=== PATIENT | female | born 1995 | race Caucasian/White ===

== ENCOUNTER 2016-11-27 16:41 | Emergency (ER) | payer OTHER ==
[2016-11-27] MEDS ORDERED: Sodium Chloride 0.9% 10 ML Syringe FLUSH PRN (17:07)
[2016-11-27] MEDS ORDERED: Sodium Chloride 0.9% 2.5 ML Syringe FLUSH PRN (17:07)
--- NOTE | 2016-11-27 17:10 | EDM.PDOC ---
<Blanca Griffin - Last Filed: 11/27/16 18:37> ED HPI GENERAL MEDICAL PROBLEM - General Chief Complaint: Abdominal Pain Stated Complaint: PT HAS STOMACH PAINS Time Seen by Provider: 11/27/16 16:56 - History of Present Illness INITIAL COMMENTS - FREE TEXT/NARRATIVE: HISTORY AND PHYSICAL: History of present illness: The patient is a 21-year-old female with no medical or surgical history and presents with complaints of right upper quadrant pain that has been ongoing since March of this year, 8-1/2 months. She has been seen in our clinic in the past and has had an ultrasound and a HIDA scan which were both normal. The patient then subsequently had an EGD done at an outside institution in May where she was diagnosed with a stomach polyp which was benign and the remainder of the exam was normal and she was not started on medications. Since May the patient has not followed up with any provider and says that she has pain every day but it does not wake her from sleep. She says is always present and seems very sharp like in character and it gets worse after fatty foods and it causes nausea. She's not had any vomiting or diarrhea and has no black or bloody stools. She has no flank pain and no urinary complaints. She has no upper respiratory symptoms chest pain or shortness of breath. The patient is not taking anything for the pain and does not ask anything for the pain. 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 She says the pain seemed to have gotten worse over the last 24 hours and she feels nauseated but no vomiting. Review of systems: As per history of present illness and below otherwise all systems reviewed and negative. Past medical history: As per history of present illness and as reviewed below otherwise noncontributory. Surgical history: As per history of present illness and as reviewed below otherwise noncontributory. Social history: No reported history of drug or alcohol abuse. Family history: As per history of present illness and as reviewed below otherwise noncontributory. Physical exam: Gen.: Well-developed well-nourished female who is nontoxic and speaking clearly and easily in the ED. She moves very easily without distress HEENT: Atraumatic, normocephalic, negative for conjunctival pallor or scleral icterus, mucous membranes moist, throat clear, neck supple, nontender, trachea midline. Lungs: Clear to auscultation, breath sounds equal bilaterally, chest nontender. Heart: S1S2, regular in rhythm no overt murmurs Abdomen: Soft, nondistended, minimally tender in the right upper quadrant on deep palpation without rebound or guarding and overall very unimpressive exam. Bowel sounds are normoactive. Negative for masses or hepatosplenomegaly. Negative for costovertebral tenderness. Pelvis: Stable nontender. Genitourinary: Deferred. Rectal: Deferred. Extremities: Atraumatic, negative for cords or calf pain. Neurovascular unremarkable. Neuro: Awake, alert, oriented. Cranial nerves II through XII unremarkable. Cerebellum unremarkable. Motor and sensory unremarkable throughout. Exam nonfocal. Diagnostics: CBC CMP amylase lipase UA UCG CT scan of the abdomen and pelvis Therapeutics: Patient refuses Zofran for nausea and any pain medications at this time We have advised the patient of all the testing results and care plan Impression: Abdominal pain chronic Definitive disposition and diagnosis as appropriate pending reevaluation and review of above. Right Upper Abdomen Pain Score (Numeric/FACES): 7 - Related Data Allergies Allergy/AdvReac Type Severity Reaction Status Date / Time amoxicillin Allergy unknown Verified 03/25/16 22:22 Home Meds: Home Meds . 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 Neurological History: Reports: None Psychiatric History: Reports: Anxiety, Depression Endocrine/Metabolic History: Reports: None Hematologic History: Reports: None Immunologic History: Reports: None Oncologic (Cancer) History: Reports: None Dermatologic History: Reports: None - Infectious Disease History Infectious Disease History: Reports: None - Past Surgical History Head Surgeries/Procedures: Reports: None HEENT Surgical History: Reports: None GI Surgical History: Reports: EGD, Polypectomy Musculoskeletal Surgical History: Reports: Other (See Below) Other Musculoskeletal Surgeries/Procedures:: low back surgery Social & Family History - Family History Family Medical History: Noncontributory - Tobacco Use Smoking Status *Q: Never Smoker ED ROS GENERAL - Review of Systems Review Of Systems: ROS reveals no pertinent complaints other than HPI. ED EXAM, GENERAL - Physical Exam Exam: See Below (See dictation) Course - Vital Signs Last Recorded V/S: Last Vital Signs Temp 36.4 C 11/27/16 16:52 Pulse 93 11/27/16 16:52 Resp 18 11/27/16 16:52 BP 138/91 H 11/27/16 16:52 Pulse Ox 99 11/27/16 16:52 - Orders/Labs/Meds Orders: Active Orders 24 hr Category Date Time Status Abdomen Pelvis w Cont [CT] Stat Exams 11/27/16 17:07 Taken Sodium Chloride 0.9% [Saline Flush] Med 11/27/16 17:07 Active 10 ml FLUSH ASDIRECTED PRN Sodium Chloride 0.9% [Saline Flush] Med 11/27/16 17:07 Active 2.5 ml FLUSH ASDIRECTED PRN Saline Lock Insert [OM.PC] Stat Oth 11/27/16 17:05 Ordered Medication Orders Sodium Chloride (Saline Flush) 10 ml FLUSH ASDIRECTED PRN PRN Reason: Keep Vein Open Sodium Chloride (Saline Flush) 2.5 ml FLUSH ASDIRECTED PRN PRN Reason: Keep Vein Open Labs: Laboratory Tests 11/27/16 11/27/16 11/27/16 Range/Units 17:15 17:15 17:20 WBC 8.77 (4.0-11.0) K/uL RBC 4.32 (4.30-5.90) M/uL Hgb 13.6 (12.0-16.0) g/dL Hct 40.1 (36.0-46.0) % MCV 92.8 (80.0-98.0) fL MCH 31.5 (27.0-32.0) pg MCHC 33.9 (31.0-37.0) g/dL RDW Std Deviation 45.2 (28.0-62.0) fl RDW Coeff of Blanca 13 (11.0-15.0) % Plt Count 260 (150-400) K/uL MPV 9.10 (7.40-12.00) fL Neut % (Auto) 60.0 (48.0-80.0) % Lymph % (Auto) 29.6 (16.0-40.0) % [place] % (Auto) 9.4 (0.0-15.0) % Eos % (Auto) 0.8 (0.0-7.0) % Baso % (Auto) 0.2 (0.0-1.5) % Neut # (Auto) 5.3 (1.4-5.7) K/uL Lymph # (Auto) 2.6 H (0.6-2.4) K/uL [place] # (Auto) 0.8 (0.0-0.8) K/uL Eos # (Auto) 0.1 (0.0-0.7) K/uL Baso # (Auto) 0.0 (0.0-0.1) K/uL Nucleated RBC % 0.0 /100WBC Nucleated RBCs # 0 K/uL Sodium 141 (136-146) mmol/L Potassium 3.4 L (3.5-5.1) mmol/L Chloride 107 (98-110) mmol/L Carbon Dioxide 25 (21-31) mmol/L BUN 10 (6.0-23.0) mg/dL Creatinine 0.8 (0.6-1.5) mg/dL Est Cr Clr Drug Dosing 108.17 mL/min Estimated GFR (MDRD) > 60.0 ml/min Glucose 93 (60-110) mg/dL Calcium 8.5 L (8.8-10.8) mg/dL Total Bilirubin 0.3 (0.1-1.5) mg/dL AST 19 (5-40) IU/L ALT 17 (8-54) IU/L Alkaline Phosphatase 63 (40-150) Total Protein 7.4 (6.0-8.0) g/dL Albumin 4.0 (3.5-5.0) g/dL Globulin 3.4 (2.0-3.5) g/dL Albumin/Globulin Ratio 1.2 L (1.3-2.8) Amylase 50 (10-90) U/L Lipase 19 (7-80) U/L Urine Color Urine Appearance Urine pH (5.0-8.0) Ur Specific [place] (1.001-1.035) Urine Protein (NEGATIVE) mg/dL Urine Glucose (UA) (NEGATIVE) mg/dL Urine Ketones (NEGATIVE) mg/dL Urine Occult Blood (NEGATIVE) Urine Nitrite (NEGATIVE) Urine Bilirubin (NEGATIVE) Urine Urobilinogen (<2.0) EU/dL Ur Leukocyte Esterase (NEGATIVE) Urine RBC (0-2/HPF) Urine WBC (0-5/HPF) Ur Epithelial Cells (NONE-FEW) Urine Bacteria (NEGATIVE) Urine HCG, Qual NEGATIVE (NEGATIVE) 11/27/16 Range/Units 17:20 WBC (4.0-11.0) K/uL RBC (4.30-5.90) M/uL Hgb (12.0-16.0) g/dL Hct (36.0-46.0) % MCV (80.0-98.0) fL MCH (27.0-32.0) pg MCHC (31.0-37.0) g/dL RDW Std Deviation (28.0-62.0) fl RDW Coeff of Blanca (11.0-15.0) % Plt Count (150-400) K/uL MPV (7.40-12.00) fL Neut % (Auto) (48.0-80.0) % Lymph % (Auto) (16.0-40.0) % [place] % (Auto) (0.0-15.0) % Eos % (Auto) (0.0-7.0) % Baso % (Auto) (0.0-1.5) % Neut # (Auto) (1.4-5.7) K/uL Lymph # (Auto) (0.6-2.4) K/uL [place] # (Auto) (0.0-0.8) K/uL Eos # (Auto) (0.0-0.7) K/uL Baso # (Auto) (0.0-0.1) K/uL Nucleated RBC % /100WBC Nucleated RBCs # K/uL Sodium (136-146) mmol/L Potassium (3.5-5.1) mmol/L Chloride (98-110) mmol/L Carbon Dioxide (21-31) mmol/L BUN (6.0-23.0) mg/dL Creatinine (0.6-1.5) mg/dL Est Cr Clr Drug Dosing mL/min Estimated GFR (MDRD) ml/min Glucose (60-110) mg/dL Calcium (8.8-10.8) mg/dL Total Bilirubin (0.1-1.5) mg/dL AST (5-40) IU/L ALT (8-54) IU/L Alkaline Phosphatase (40-150) Total Protein (6.0-8.0) g/dL Albumin (3.5-5.0) g/dL Globulin (2.0-3.5) g/dL Albumin/Globulin Ratio (1.3-2.8) Amylase (10-90) U/L Lipase (7-80) U/L Urine Color YELLOW Urine Appearance CLEAR Urine pH 6.0 (5.0-8.0) Ur Specific [place] <= 1.005 (1.001-1.035) Urine Protein NEGATIVE (NEGATIVE) mg/dL Urine Glucose (UA) NEGATIVE (NEGATIVE) mg/dL Urine Ketones NEGATIVE (NEGATIVE) mg/dL Urine Occult Blood NEGATIVE (NEGATIVE) Urine Nitrite NEGATIVE (NEGATIVE) Urine Bilirubin NEGATIVE (NEGATIVE) Urine Urobilinogen 0.2 (<2.0) EU/dL Ur Leukocyte Esterase NEGATIVE (NEGATIVE) Urine RBC 0-1 (0-2/HPF) Urine WBC NONE SEEN (0-5/HPF) Ur Epithelial Cells FEW (NONE-FEW) Urine Bacteria RARE (NEGATIVE) Urine HCG, Qual (NEGATIVE) Meds: Medications Generic Name Dose Route Start Last Admin Trade Name Freq PRN Reason Stop Dose Admin Sodium Chloride 10 ml 11/27/16 17:07 Saline Flush FLUSH ASDIRECTED PRN Keep Vein Open Sodium Chloride 2.5 ml 11/27/16 17:07 Saline Flush FLUSH ASDIRECTED PRN Keep Vein Open Discontinued Medications Generic Name Dose Route Start Last Admin Trade Name Freq PRN Reason Stop Dose Admin Iopamidol 100 ml 11/27/16 18:14 11/27/16 18:21 Isovue Multipack-370 (76%) IVPUSH 11/27/16 18:15 100 ml ONETIME STA Administration Departure - Departure Disposition: Home, Self-Care 01 Condition: Good Clinical Impression: Abdominal pain Qualifiers: Abdominal location: right upper quadrant Qualified Code(s): R10.11 - Right upper quadrant pain - Discharge Information Referrals: PCP,None [Primary Care Provider] - Forms: ED Department Discharge Additional Instructions: The following information is given to patients seen in the emergency department who are being discharged to home. This information is to outline your options for follow-up care. We provide all patients seen in our emergency department with a follow-up referral. The need for follow-up, as well as the timing and circumstances, are variable depending upon the specifics of your emergency department visit. If you don't have a primary care physician on staff, we will provide you with a referral. We always advise you to contact your personal physician following an emergency department visit to inform them of the circumstance of the visit and for follow-up with them and/or the need for any referrals to a consulting specialist. The emergency department will also refer you to a specialist when appropriate. This referral assures that you have the opportunity for followup care with a specialist. All of these measure are taken in an effort to provide you with optimal care, which includes your followup. Under all circumstances we always encourage you to contact your private physician who remains a resource for coordinating your care. When calling for followup care, please make the office aware that this follow-up is from your recent emergency room visit. If for any reason you are refused follow-up, please contact the [facility] emergency department at and ask to speak to the emergency department charge nurse. [facility]- [place] [address] Please call and connect with your clinic provider for further care and evaluation as we discussed. Please avoid fatty foods and push hydration avoid caffeinated products. Return to ER as needed and as discussed. <Issa Camacho - Last Filed: 11/27/16 19:44> Course - Vital Signs Text/Narrative:: Patient's CAT scan was reviewed there was a comment of suspicions for mild nonspecific colitis along the ascending colon near the hepatic flexure suggestion was to clinically correlate patient has had this pain since March but no diarrhea no fever no chills and no other complaints there is no clinical statement of colitis I will share with patient she needs to follow-up with her private doctor in whether colonoscopy is indicated at some point or further diagnostics will be determined by her private doctor in herself. Departure - Departure Time of Disposition: 19:43
[2016-11-27 17:43] LABS: CHLORIDE,CL 107 mmol/L (98-110); SODIUM,NA 141 mmol/L (136-146)
[2016-11-27] MEDS ORDERED: Iopamidol 755 MG/ML 500 ML Multipack Bottle IVPUSH STA (18:14)
[2016-11-27 21:13] VITALS: BP 97/63
--- NOTE | 2016-11-28 10:03 | CT ---
EXAM DATE: 11/27/16 PATIENT'S AGE: 21 Patient: MARIO AMOS Facility: [place], [place] Site . Site : 1995 Study: CT Abdomen/Pelvis [id number]/12/2017 6:36:37 PM Ordering Physician: Gaby Rios Final Report: INDICATION: RUQ pain TECHNIQUE: CT abdomen and pelvis acquired with IV contrast. COMPARISON: 03/26/2016 FINDINGS: Lower chest: Unremarkable. Liver: Unremarkable. Spleen: Unremarkable. Pancreas: Unremarkable. Gallbladder and bile ducts: Contracted. Kidneys: Unremarkable. Adrenal glands: Unremarkable. GI tract: Apparent circumferential wall thickening with mild pericolonic stranding along the ascending colon near the hepatic flexure. Appendix is normal. Vascular structures: Negative. No sign of aneurysm. Lymph nodes: Unremarkable. Miscellaneous: Unremarkable. No free air or significant free fluid. Pelvic Organs: Unremarkable. Bones: Postsurgical changes at the L5-S1 level. . IMPRESSION: Findings suspicious for mild nonspecific colitis along the ascending colon near the hepatic flexure. Please correlate with clinical presentation and laboratory findings. Dictated by Bob Amaral MD @ 11/27/2016 7:20:51 PM Dictated by: Bob Amaral MD @ 11/27/2016 19:20:58 (Electronic Signature) Report Signed by Proxy. [facility]
== END 2016-11-27 20:00 | disposition home or self-care (01) ==
LOC: MW.ED 16:41
DX: R10.11 Right upper quadrant pain (principal); K21.9 Gastro-esophageal reflux disease without esophagitis; F32.9 Major depressive disorder, single episode, unspecified; Z88.1 Allergy status to other antibiotic agents; Z98.890 Other specified postprocedural states
CPT/HCPCS: 36415; 74177; 80053; 81001; 81025; 82150; 83690; 85025; 99284; Q9967; 99283

== ENCOUNTER 2020-03-09 00:49 | Emergency (ER) | payer BC, OTHER ==
[2020-03-09 02:58] LABS: ACETAMINOPHEN <2.0 ug/mL; BLOOD UREA NITROGEN,BUN 11 mg/dL (7.0-18.0); CHLORIDE,CL 105 mmol/L (98-107); GLUCOSE RANDOM 107 mg/dL (74-106); POTASSIUM,K 3.8 mmol/L (3.5-5.1); SODIUM,NA 141 mmol/L (136-145)
--- NOTE | 2020-03-09 03:24 | EDM.PDOC ---
ED HPI GENERAL MEDICAL PROBLEM - General Chief Complaint: Behavioral/Psych Stated Complaint: MENTAL ISSUES Time Seen by Provider: 03/09/20 01:15 Source of Information: Reports: Patient History Limitations: Reports: No Limitations - History of Present Illness INITIAL COMMENTS - FREE TEXT/NARRATIVE: 24-year-old female past medical history depression, anxiety presents for suicidal ideation. Patient notes that she got an argument with her boyfriend and some friends and has been having ruminating thoughts about ending her life. She does not have a specific plan. She has had ruminations of suicide in the past but has never acted on it. She denies drug use, but she does endorse alcohol use although appears clinically sober. She denies any medical complaints. - Related Data Allergies Allergy/AdvReac Type Severity Reaction Status Date / Time amoxicillin Allergy unknown Verified 03/25/16 22:22 Home Meds: Home Meds . 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 Neurological History: Reports: None Psychiatric History: Reports: Anxiety, Depression Endocrine/Metabolic History: Reports: None Hematologic History: Reports: None Immunologic History: Reports: None Oncologic (Cancer) History: Reports: None Dermatologic History: Reports: None - Infectious Disease History Infectious Disease History: Reports: None - Past Surgical History Head Surgeries/Procedures: Reports: None HEENT Surgical History: Reports: None GI Surgical History: Reports: EGD, Polypectomy Musculoskeletal Surgical History: Reports: Other (See Below) Other Musculoskeletal Surgeries/Procedures:: low back surgery Social & Family History - Family History Family Medical History: No Pertinent Family History ED ROS GENERAL - Review of Systems Review Of Systems: Comprehensive ROS is negative, except as noted in HPI. ED EXAM, GENERAL - Physical Exam Exam: See Below Exam Limited By: No Limitations General Appearance: Alert, WD/WN, No Apparent Distress Throat/Mouth: Normal Voice, No Airway Compromise Head: Atraumatic, Normocephalic Neck: Normal Inspection Respiratory/Chest: No Respiratory Distress, No Accessory Muscle Use Cardiovascular: Normal Peripheral Pulses GI/Abdominal: Soft, Non-Tender Extremities: Normal Inspection Neurological: Alert Psychiatric: Normal Affect, Normal Mood Skin Exam: Warm, Dry, Intact, Normal Color Course - Orders/Labs/Meds Orders: Active Orders 24 hr Category Date Time Status EKG 12 Lead [EKG Documentation Completion] [RC] STAT Care 03/09/20 02:40 Active DRUG SCREEN, URINE [URCHEM] Stat Lab 03/09/20 02:40 Ordered HCG QUALITATIVE,URINE [URCHEM] Stat Lab 03/09/20 02:40 Ordered UA RFX KANDICE AND CULT IF INDIC [URIN] Stat Lab 03/09/20 02:40 Ordered Labs: Laboratory Tests 03/09/20 03/09/20 Range/Units 01:33 01:33 WBC 9.18 (4.0-11.0) K/uL RBC 3.80 L (4.30-5.90) M/uL Hgb 11.8 L (12.0-16.0) g/dL Hct 35.9 L (36.0-46.0) % MCV 94.5 (80.0-98.0) fL MCH 31.1 (27.0-32.0) pg MCHC 32.9 (31.0-37.0) g/dL RDW Std Deviation 46.1 (28.0-62.0) fl RDW Coeff of Blanca 14 (11.0-15.0) % Plt Count 309 (150-400) K/uL MPV 9.10 (7.40-12.00) fL Neut % (Auto) 75.6 (48.0-80.0) % Lymph % (Auto) 16.6 (16.0-40.0) % [place] % (Auto) 7.0 (0.0-15.0) % Eos % (Auto) 0.5 (0.0-7.0) % Baso % (Auto) 0.3 (0.0-1.5) % Neut # (Auto) 6.9 H (1.4-5.7) K/uL Lymph # (Auto) 1.5 (0.6-2.4) K/uL [place] # (Auto) 0.6 (0.0-0.8) K/uL Eos # (Auto) 0.1 (0.0-0.7) K/uL Baso # (Auto) 0.0 (0.0-0.1) K/uL Sodium 141 (136-145) mmol/L Potassium 3.8 (3.5-5.1) mmol/L Chloride 105 (98-107) mmol/L Carbon Dioxide 25.0 (21.0-32.0) mmol/L BUN 11 (7.0-18.0) mg/dL Creatinine 0.7 (0.6-1.0) mg/dL Est Cr Clr Drug Dosing TNP Estimated GFR (MDRD) > 60.0 ml/min Glucose 107 H (74-106) mg/dL Calcium 8.8 (8.5-10.1) mg/dL Total Bilirubin 0.2 (0.2-1.0) mg/dL AST 13 L (15-37) IU/L ALT 17 (14-63) IU/L Alkaline Phosphatase 84 (46-116) U/L Creatine Kinase 81 (26-308) U/L Total Protein 7.8 (6.4-8.2) g/dL Albumin 3.6 (3.4-5.0) g/dL Globulin 4.2 H (2.6-4.0) g/dL Albumin/Globulin Ratio 0.9 (0.9-1.6) Salicylates 0.8 (0-20) mg/dL Acetaminophen <2.0 ug/mL Ethyl Alcohol 52 mg/dL - Re-Assessments/Exams Free Text/Narrative Re-Assessment/Exam: 03/09/20 01:24 Will get medical clearance labs for potential psychiatric admission. Will reassess patient after labs for disposition 03/09/20 02:25 Labs unremarkable. Will reassess patient for disposition. 03/09/20 03:36 Had a long discussion with the patient. She denies suicidal ideation at this time. She notes that she was drinking earlier and this may cloud her judgment. She feels safe going home. We will set her up with mental health resources. She understands that if she develops thoughts of suicide that she is encouraged to come back to the emergency department, and she agrees to verbal safety contract to come back to the hospital for any concerns. Departure - Departure Time of Disposition: 03:35 Disposition: Home, Self-Care 01 Condition: Good Clinical Impression: Depression Qualifiers: Depression Type: unspecified Qualified Code(s): F32.9 - Major depressive disorder, single episode, unspecified - Discharge Information Instructions: Major Depressive Disorder, Adult Referrals: Varsha Santiago MD [Primary Care Provider] - Forms: ED Department Discharge Additional Instructions: The following information is given to patients seen in the emergency department who are being discharged to home. This information is to outline your options for follow-up care. We provide all patients seen in our emergency department w ith a follow-up referral. The need for follow-up, as well as the timing and circumstances, are variable depending upon the specifics of your emergency department visit. If you don't have a primary care physician on staff, we will provide you with a referral. We always advise you to contact your personal physician following an emergency department visit to inform them of the circumstance of the visit and for follow-up with them and/or the need for any referrals to a consulting specialist. The emergency department will also refer you to a specialist when appropriate. This referral assures that you have the opportunity for follow-up care with a specialist. All of these measure are taken in an effort to provide you with optimal care, which includes your follow-up. Under all circumstances we always encourage you to contact your private physician who remains a resource for coordinating your care. When calling for follow-up care, please make the office aware that this follow-up is from your recent emergency room visit. If for any reason you are refused follow-up, please contact the [facility] Emergency Department at and asked to speak to the emergency department charge nurse. Please follow up with your primary care physician. If you do not have a primary care physician, see below: [facility] [address] [place] [id number] My [facility] [address] [place] [phone] If you are experiencing any thoughts of self-harm or feel like you need any mental health services you are encouraged to come back to the emergency department as we are always here for you as a resource. - My Orders Last 24 Hours: My Active Orders 03/09/20 02:40 EKG 12 Lead [EKG Documentation Completion] [RC] STAT DRUG SCREEN, URINE [URCHEM] Stat HCG QUALITATIVE,URINE [URCHEM] Stat UA RFX KANDICE AND CULT IF INDIC [URIN] Stat - Assessment/Plan Last 24 Hours: My Active Orders 03/09/20 02:40 EKG 12 Lead [EKG Documentation Completion] [RC] STAT DRUG SCREEN, URINE [URCHEM] Stat HCG QUALITATIVE,URINE [URCHEM] Stat UA RFX KANDICE AND CULT IF INDIC [URIN] Stat
[2020-03-09 04:00] VITALS: BP 140/92; PULSE 98
== END 2020-03-09 04:12 | disposition home or self-care (01) ==
LOC: MW.ED 00:49
DX: F32.9 Major depressive disorder, single episode, unspecified (principal); Z88.0 Allergy status to penicillin
CPT/HCPCS: 36415; 80053; 80307; 82550; 85025; 93005; 99285-25

== ENCOUNTER 2021-12-25 06:00 | Day surgery (SDC) | payer BC ==
[2021-12-25] MEDS ORDERED: Dexmedetomidine 200 MCG/2 ML SDV ONE (07:20)
[2021-12-25] MEDS ORDERED: fentaNYL 100 MCG/2 ML SDV ONE (07:20)
[2021-12-25] MEDS ORDERED: Propofol 200 MG/20 ML SDV ONE (07:20)
[2021-12-25] MEDS ORDERED: Lidocaine 2% 5 ML SDV ONE (07:21)
[2021-12-25] MEDS ORDERED: Water For Injection, Sterile 20 ML ONE (07:21)
[2021-12-25] MEDS ORDERED: Lactated Ringers 1,000 ML IV ONE (07:58)
[2021-12-25] MEDS ORDERED: Rocuronium Bromide 50 MG/5 ML Syringe IVPUSH ONE (08:00)
[2021-12-25] MEDS ORDERED: Magnesium Sulfate (4.06 MEQ/ML) 5 GM/10 ML SDV IV ONE (08:00)
[2021-12-25] MEDS ORDERED: Ketamine 500 mg/10 ML MDV ONE (08:10)
[2021-12-25] MEDS ORDERED: Dexamethasone 4 MG/ML 5 ML MDV ONE (08:24)
[2021-12-25] MEDS ORDERED: ePHEDrine 50 MG/ML SDV ONE (08:36)
[2021-12-25] MEDS ORDERED: Methylene Blue 50 MG/10 ML Ampule INJECT ONE (09:00)
[2021-12-25] MEDS ORDERED: Bupivacaine 0.25% 30 ML SDV INFILT ONE (09:00)
[2021-12-25] MEDS ORDERED: Ondansetron 4 MG/2 ML SDV ONE (09:15)
[2021-12-25] MEDS ORDERED: Sugammadex Sodium 200 MG/2 ML VIAL ONE (09:15)
[2021-12-25] MEDS ORDERED: HYDROmorphone 1 MG/ML Syringe ONE (09:42)
[2021-12-25] MEDS ORDERED: Acetaminophen/HYDROcodone 325-5 MG Tab ONE (10:40)
== END 2021-12-25 12:15 ==
LOC: MW.SDS 06:00
PROVIDERS: ATTEND Obstetrics & Gynecology
DX: N94.12 Deep dyspareunia (principal); F32.A Depression, unspecified; K21.9 Gastro-esophageal reflux disease without esophagitis; K58.9 Irritable bowel syndrome, unspecified; F41.9 Anxiety disorder, unspecified; Z98.890 Other specified postprocedural states; Z79.899 Other long term (current) drug therapy; Z88.1 Allergy status to other antibiotic agents
CPT/HCPCS: 49320; 58350; A9270; J0131; J1100; J1170; J2405; J2704; J3010; J3475; J3490; J7030; J7120; 00952

== ENCOUNTER 2022-04-27 09:18 | Day surgery (SDC) | payer OTHER ==
[~2022-04-27 09:18] MED LIST: Lactated Ringers 1,000 ML IV SCH; Midazolam 1 MG/ML 2 ML SDV ONE; Propofol 200 MG/20 ML SDV ONE; fentaNYL 100 MCG/2 ML SDV ONE
[2022-04-27] MEDS ORDERED: Propofol 200 MG/20 ML SDV ONE (11:17)
[2022-04-27] MEDS ORDERED: Magnesium Sulfate (4.06 MEQ/ML) 5 GM/10 ML SDV ONE (11:58)
[2022-04-27 12:21] VITALS: BP 105/62; PULSE 76
== END 2022-04-27 12:30 | disposition home or self-care (01) ==
LOC: MW.SDS 09:18
PROVIDERS: ATTEND Surgery
DX: Z12.11 Encounter for screening for malignant neoplasm of colon (principal); K29.50 Unspecified chronic gastritis without bleeding; K21.9 Gastro-esophageal reflux disease without esophagitis; K31.7 Polyp of stomach and duodenum; K44.9 Diaphragmatic hernia without obstruction or gangrene; F41.8 Other specified anxiety disorders; E16.1 Other hypoglycemia; E04.2 Nontoxic multinodular goiter; E66.3 Overweight; E55.9 Vitamin D deficiency, unspecified; Z88.0 Allergy status to penicillin; Z80.0 Family history of malignant neoplasm of digestive organs; Z79.899 Other long term (current) drug therapy; Z98.890 Other specified postprocedural states; Z68.28 Body mass index [BMI] 28.0-28.9, adult
CPT/HCPCS: 81025; J0131; J2250; J2704; J3010; J3475; J7120

== ENCOUNTER 2022-09-01 04:34 | Emergency (ER) | payer SELFPAY ==
[2022-09-01] MEDS ORDERED: Ibuprofen 400 MG Tab PO ONE (04:44)
[2022-09-01] MEDS ORDERED: Acetaminophen 325 MG/10.15 ML ML PO ONE (04:44)
[2022-09-01] MEDS ORDERED: Acetaminophen 325 MG Tab PO ONE (05:10)
[2022-09-01 05:14] LABS: APPEARANCE,URINE CLEAR; BILIRUBIN,URINE NEGATIVE (NEGATIVE); COLOR,URINE YELLOW; GLUCOSE,URINE NEGATIVE (NEGATIVE); KETONES,URINE NEGATIVE (NEGATIVE); LEUKOCYTE ESTERASE,URINE NEGATIVE (NEGATIVE); NITRITE,URINE NEGATIVE (NEGATIVE); OCCULT BLOOD,URINE TRACE-INTACT (NEGATIVE); PH,URINE 5.5 (5.0-8.0); PROTEIN,URINE NEGATIVE (NEGATIVE); UROBILINOGEN,URINE 0.2 EU/dL (<2.0)
[2022-09-01 05:32] LABS: BACTERIA,URINE RARE (NEGATIVE); EPITHELIAL CELLS,URINE FEW (NONE-FEW); RBC,URINE 0-1 (0-2/HPF); WBC,URINE 0-3 (0-5/HPF)
[2022-09-01 10:33] VITALS: BP 128/79; PULSE 84
== END 2022-09-01 10:32 | disposition home or self-care (01) ==
LOC: MW.ED 04:34
DX: S93.402A Sprain of unspecified ligament of left ankle, initial encounter (principal); Z88.0 Allergy status to penicillin; X50.1XXA Overexertion from prolonged static or awkward postures, initial encounter
CPT/HCPCS: 73590; 73610; 81001; 99283; A9270

== ENCOUNTER 2024-02-26 11:13 | Emergency (ER) | payer OTHER ==
[2024-02-26 11:26] VITALS: BP 115/81
[2024-02-26 11:43] LABS: BASOPHILS ABSOLUTE AUTO 0.04 K/uL (0.00-0.20); BASOPHILS PERCENT AUTO 0.7 % (0.0-1.0); EOSINOPHILS PERCENT AUTO 1.8 % (0.0-6.0); HEMOGLOBIN 12.6 g/dL (12.0-16.0); IMMATURE GRAN ABSOLUTE AUTO 0.01 K/uL (0.00-0.05); IMMATURE GRAN PERCENT AUTO 0.2 % (0.0-0.4); LYMPHOCYTES ABSOLUTE AUTO 1.77 K/uL (1.00-4.80); LYMPHOCYTES PERCENT AUTO 31.7 % (24.0-44.0); MEAN CORPUSCULAR HEMOGLOBIN 31.8 pg (28.0-32.0); MEAN CORPUSCULAR VOLUME 90.9 fL (83.0-99.0); MEAN PLATELET VOLUME 9.3 fL (9.4-12.3); MONOCYTES PERCENT AUTO 8.9 % (0.0-8.0); NEUTROPHILS ABSOLUTE AUTO 3.17 K/uL (1.80-7.70); NEUTROPHILS PERCENT AUTO 56.7 % (41.0-71.0); PLATELET COUNT,PLT 257 K/uL (150-400); RED BLOOD CELL COUNT 3.96 M/uL (4.10-5.30); WHITE BLOOD CELL COUNT,WBC 5.59 K/uL (3.9-11.3)
[2024-02-26 12:25] LABS: A/G RATIO 1.2 (0.9-1.6); ALANINE AMINOTRANSFERASE,ALT 22 IU/L (14-63); ALKALINE PHOSPHATASE 86 U/L (46-116); ASPARTATE AMNIOTRANSFERASE,AST 18 IU/L (15-37); BILIRUBIN TOTAL 0.6 mg/dL (0.2-1.0); BLOOD UREA NITROGEN,BUN 7 mg/dL (7.0-18.0); CHLORIDE,CL 103 mmol/L (98-107); EST CRCL DRUG DOSING (CG) 81.45 mL/min; GLUCOSE RANDOM 88 mg/dL (74-106); LIPASE 34 U/L (16-77); MAGNESIUM 1.7 mg/dL (1.8-2.4); POTASSIUM,K 3.3 mmol/L (3.5-5.1); PRO B-TYPE NATRIUR PEPT,BNPPRO 102 pg/mL (0-125); PROTEIN TOTAL,TP 7.4 g/dL (6.4-8.2); SODIUM,NA 139 mmol/L (136-145)
[2024-02-26 12:27] LABS: ESTIMATED GFR 79 mL/min (>60)
[2024-02-26 13:13] VITALS: PULSE 78
== END 2024-02-26 13:12 | disposition home or self-care (01) ==
LOC: MW.ED 11:13
DX: R07.9 Chest pain, unspecified (principal); E83.42 Hypomagnesemia; R94.31 Abnormal electrocardiogram [ECG] [EKG]; Z90.89 Acquired absence of other organs; Z88.0 Allergy status to penicillin; Z79.899 Other long term (current) drug therapy; Z75.8 Other problems related to medical facilities and other health care
CPT/HCPCS: 36415; 80053; 83690; 83735; 83880; 84484; 84703; 85025; 85379; 93005; 99285

== ENCOUNTER 2024-12-11 22:15 | Emergency (ER) | payer OTHER ==
[2024-12-11] MEDS: Diphtheria,Pertussis(Acell),Tetanus Vaccine 0.5 ML Syringe IM ONE (22:54)
[2024-12-12 00:22] VITALS: BP 128/85; PULSE 89
== END 2024-12-12 00:22 | disposition home or self-care (01) ==
LOC: MW.ED 22:15
DX: S01.81XA Laceration without foreign body of other part of head, initial encounter (principal); K21.9 Gastro-esophageal reflux disease without esophagitis; Z88.0 Allergy status to penicillin; Z79.899 Other long term (current) drug therapy; W01.198A Fall on same level from slipping, tripping and stumbling with subsequent striking against other object, initial encounter
CPT/HCPCS: 12011; 70486; 90715; 99283; A9270; 12001